=== PATIENT | male | born 1980 | race Caucasian/White ===

== ENCOUNTER 2020-08-30 17:50 | Emergency (ER) | payer MEDICAID ==
[~2020-08-30] VITALS: Ht 175.3 cm; Wt 66.5 kg
[2020-08-30 20:56] VITALS: BP 123/81
== END 2020-08-30 20:58 | disposition home or self-care (01) ==
LOC: ER 17:50
DX: L40.9 Psoriasis, unspecified (principal); Z72.89 Other problems related to lifestyle
CPT/HCPCS: 99282